=== PATIENT | female | born 1960 | race Caucasian/White ===

== ENCOUNTER 2018-02-17 09:48 | Emergency (ER) | payer BC ==
[~2018-02-17] VITALS: Ht 160 cm; Wt 79.4 kg
[2018-02-17 09:59] VITALS: Ht 160 cm; Wt 79.4 kg
[2018-02-17 11:20] VITALS: BP 131/74
== END 2018-02-17 11:20 | disposition home or self-care (01) ==
LOC: ED 09:48
DX: S29.011A Strain of muscle and tendon of front wall of thorax, initial encounter (principal); S40.011A Contusion of right shoulder, initial encounter; M54.5 Low back pain; V89.2XXA Person injured in unspecified motor-vehicle accident, traffic, initial encounter; Y93.73 Activity, racquet and hand sports; Y92.488 Other paved roadways as the place of occurrence of the external cause; Y99.8 Other external cause status